=== PATIENT | female | born 1990 | race Caucasian/White ===

== ENCOUNTER 2017-02-18 04:18 | Emergency (ER) | payer OTHER ==
[~2017-02-18] VITALS: Ht 170.2 cm; Wt 68.2 kg
[2017-02-18 04:22] VITALS: BP 101/65; PULSE 129; RESP 25; O2SAT 97
--- NOTE | 2017-02-18 04:37 | ED.REPORT ---
HPI-Back Pain Under 40 Date of Service Feb 18, 2017 ED Provider: Nathan Osborn MD Patient is a 26 year old female with a history of anxiety, bipolar disorder and depression who presents to the ED complaining of severe anxiety. Associated symptoms include chronic upper back pain, feeling hot without a fever, nausea, vomiting, insomnia and decreased appetite. She denies incontinence, weakness, numbness or bowel dysfunction. Per the patient's mother's boyfriend, the patient has also been having suicidal ideations. The patient has been trying to take her medication but the patient's family doesn't think the medications have been working because she has been vomiting every day for the past few days. The patient was recently hospitalized at [facility] during the last month and thinks she is unable to live on her own because she cannot take care of herself. She has been clean for heroin for 18 months and states that her back pain began after she stopped using. Nursing Notes Stated Complaint: BACK PAIN/ANXIETY Chief Complaint: Back Pain or Injury Nursing Notes Reviewed: Yes Allergies: Coded Allergies: haloperidol (Verified Allergy, Severe, DISCONNESTA, 02/18/17) fentanyl (Verified Allergy, Unknown, 02/18/17) General Time Seen by MD: 04:37 Chief Complaint Back pain Hx Obtained From: Patient, Other family... Arrived By: Walk-in Sudden in Onset?: No Onset Occurred: More than a week ago... (6 months) Location: : Spinal thoracic area Severity: Current: Severe Severity: Maximum: Severe Recent Healthcare: Recent doctor visit, Recent hospitalization Similar Sx Previous: Yes Past Medical History Past Medical History anxiety chronic back pain bipolar disorder Smoking History Unknown if Ever Smoker Social History Alcohol Use: Denies alcohol use Drug Use: In recovery Other Social History: Good social support Ambulatory Status Independent Review of Systems Review of Systems Note: decreased appetite feeling hot Constitutional: Denies: Chills, Fever Respiratory: Denies: Non-productive cough, Shortness of breath GI: Reports: Nausea, Vomiting Female: Denies: Incontinence Musculoskeletal: Reports: Back pain Neurologic: Denies: Bladder dysfunction, Bowel dysfunction, Numbness, Weakness Complete sys rev & neg: except as marked. Skin: Denies Itching, Denies Rash Psychiatric: Reports: Anxiety, Insomnia, Suicidal ideation Physical Exam Initial Vital Signs Vital Signs (First) Date Time Temp Pulse Resp B/P Pulse Ox O2 Delivery O2 Flow Rate FiO2 7/11/17 04:22 36.8 129 25 101/65 97 Room Air Initial VS: Reviewed General/Constitutional: Awake, Alert Behavior: Positive: Tearful BACK: excoriated upper thoracic area Neurologic: Oriented X3, Speech NL, No motor deficits, No sensory deficits Respiratory / Chest: Atraumatic, No respiratory distress Head / Eyes: Atraumatic, Normocephalic, PERRL, EOMI Skin: Atraumatic, Color NL, No rash, Warm, Dry Abnormal Mood/Affect: Positive: Anxious Interpretation & Diagnostics Lab Results Interpretation Result Diagram: 02/18/17 0500 02/18/17 0500 Test 02/18/17 04:50 02/18/17 05:00 Urine Color Yellow (YELLOW) Urine Appearance Slightly cloudy Urine pH 7.0 (5.0-8.0) Urine Specific [place] 1.015 (1.003-1.035) Urine Protein Tracemg/dL (NEG,TRACE) Urine Glucose (UA) Negativemg/dL (NEGATIVE) Urine Ketones 15mg/dL (NEGATIVE) Urine Occult Blood Negative (NEGATIVE) Urine Nitrite Negative (NEGATIVE) Urine Bilirubin Negative (NEGATIVE) Urine Urobilinogen Normalmg/dL (NORMAL) Urine Leukocyte Esterase Negative (NEGATIVE) Urine RBC 0-2/hpf (0-2) Urine WBC 0-5/hpf (0-5) Urine Epithelial Cells Many/hpf (NONE-MOD) Urine Crystals None seen (NONE SEEN) Urine Bacteria Many/hpf (NONE-FEW) Urine Hyaline Casts None/lpf (NONE) Urine Granular Casts None seen (NONE SEEN) Urine Waxy Casts None seen (NONE SEEN) Urine Red Blood Cell Casts None seen (NONE SEEN) Urine White Blood Cell Casts None seen (NONE SEEN) Urine Mucus Present (None Seen) Urine Trichomonas None seen (NONE SEEN) Urine Yeast None (NONE SEEN) Urinalysis Comment None Urine Culture Reflexed Indicated White Blood Count 15.7th/mm3 (3.8-10.1) Red Blood Count 5.31mil/mm3 (3.90-5.20) Hemoglobin 13.2g/dL (12.0-15.6) Hematocrit 40.4% (35.0-46.0) Mean Corpuscular Volume 76.1fL (81-100) Mean Corpuscular Hemoglobin 24.9pg (27.0-35.0) Mean Corpuscular Hemoglobin Concent 32.7% (32.0-37.0) Red Cell Distribution Width 15.0% (12.3-15.4) Platelet Count 508bil/L (150-400) Neutrophils (%) (Auto) 83.9% (40-74) Lymphocytes (%) (Auto) 8.0% (14-46) Monocytes (%) (Auto) 7.5% (4-12) Eosinophils (%) (Auto) 0.1% (0-5) Basophils (%) (Auto) 0.2% (0-3) Erythrocyte Sedimentation Rate 4mm/hr (0-32) Sodium Level 136mEq/L (134-144) Potassium Level 3.9mEq/L (3.5-5.2) Chloride Level 97mEq/L (97-108) Carbon Dioxide Level 20mmol/L (18-29) Blood Urea Nitrogen 6mg/dL (6-20) Creatinine 0.66mg/dL (0.57-1.00) Estimat Glomerular Filtration Rate 156mL/min (>59) Glucose Level 98mg/dL (60-99) Calcium Level 10.4mg/dL (8.5-10.1) Magnesium Level 2.0mg/dL (1.6-2.6) Total Bilirubin 0.8mg/dL (0.0-1.2) Aspartate Amino Transf (AST/SGOT) 46U/L (0-50) Alanine Aminotransferase (ALT/SGPT) 23U/L (0-32) Alkaline Phosphatase 87U/L (25-150) Total Protein 8.3g/dL (6.4-8.4) Albumin 4.9g/dL (3.4-5.0) Lipase 30U/L (13-60) Thyroid Stimulating Hormone (TSH) 1.290uIU/mL (0.450-4.500) Hold Dangelo Top Tube Received (Received) [place] Level 0.3mEq/L (0.5-1.5) Alcohols < 10mg/dL (0-10) Re-Eval/Medical Decision Med Decision/Clinical Course 26-year-old female with history of heroin abuse, now clean for eighteen months, presents with chronic back pain and anxiety and depression with suicidal ideation. The back pain is mid thoracic, and is not evaluated for eight or ten months. Sedimentation rate is low. White count is moderately elevated. CT with contrast awaited. May require MRI, but she has no neurological symptoms distally. As regards her anxiety and her depression, she is on lithium with established bipolar history, and notably on Vistaril, and not benzodiazepines. She was given a single dose here, but it is apparent that her caregivers were attempting to avoid heavy chewing substances in her case, particularly with her history of abuse. She is seeking psychiatric admission, but will require medical clearance and control of her current symptoms before she would be suitable for a psychiatric admission. Transferred to Dr. Ojeda's morning for further evaluation and disposition as appropriate. Discharge & Departure Shift Change Sign-Out Patient Care Transferred: Yes Discussed Complaint(s): Yes Impression: Primary Impression: Anxiety Additional Impression: Back pain Back pain location: thoracic back pain Chronicity: chronic Back pain laterality: midline Qualified Code: M54.6 - Pain in thoracic spine All VS Reviewed: Yes Condition: Stable Care Transferred to: Dr. Ojeda Care Transferred at: 06:00 Scribe Attestation Portions of this note were transcribed by Jaqueline Salcedo. I, Dr. Osborn personally performed the history, physical exam and medical decision-making; I reviewed and confirmed the accuracy of the information in the transcribed note. Signed by: Tre Mock, 02/18/17 and 06 Nathan Osborn MD Feb 18, 2017 04:37 Madisyn Salcedo Feb 18, 2017 04:46
[2017-02-18] MEDS ORDERED: 0.9% Sodium Chloride 1,000 ML IV ONE ×2 (04:48→07:25)
[2017-02-18] MEDS ORDERED: Famotidine Inj 20 MG in IV Premix 1 EACH IV ONE (04:50)
[2017-02-18] MEDS ORDERED: Ondansetron 2 mg/mL 2 mL Inj IVPUSH ONE (04:50)
[2017-02-18 05:05] LABS: APPEARANCE,URINE SLIGHTLY CLOUDY (CLEAR,HAZY); COLOR,URINE YELLOW (YELLOW); OCCULT BLOOD,URINE NEGATIVE (NEGATIVE); UROBILINOGEN,URINE NORMAL (NORMAL)
[2017-02-18 05:17] LABS: BASOPHILS % (AUTO) 0.2 % (0-3); EOSINOPHILS % (AUTO) 0.1 % (0-5); MONOCYTES % (AUTO) 7.5 % (4-12); Mean Corpuscular Hemoglobin 24.9 pg (27.0-35.0); Mean Corpuscular Volume 76.1 fL (81-100); NEUTROPHILS % (AUTO) 83.9 % (40-74); Platelet Count 508 bil/L (150-400)
[2017-02-18] MEDS ORDERED: Ketamine 10 mg/mL 20 mL Inj IV ONE (06:20)
[2017-02-18 06:42] LABS: Lipase 30 U/L (13-60)
[2017-02-18] MEDS ORDERED: HYDR50CA3 PO (07:35)
[2017-02-18] MEDS ORDERED: QUET200T PO (07:35)
[2017-02-18] MEDS ORDERED: KETO10TA PO (07:35)
[2017-02-18] MEDS ORDERED: ONDA4TAB12 PO (07:35)
[2017-02-18] MEDS ORDERED: BUPR1FIL3 SL (07:35)
[2017-02-18] MEDS ORDERED: TRAZ-118 PO (07:35)
[2017-02-18] MEDS ORDERED: GABA800T2 PO (07:35)
[2017-02-18] MEDS ORDERED: LITH300T PO (07:35)
[2017-02-18] MEDS ORDERED: PANT40TA3 PO (07:35)
[2017-02-18 07:39] VITALS: BP 114/70; PULSE 88; RESP 14; O2SAT 100
[2017-02-18] MEDS ORDERED: Buprenorphine 2 mg SL Tablet SL ONE (07:40)
--- NOTE | 2017-02-18 09:10 | DRSVH ---
PROCEDURE: CT THORACIC SPINE WITH CONTRAST ([id number]) INDICATIONS: pain t spine in heroin abuser TECHNIQUE: After the administration of intravenous Isovue contrast, 3 mm thick sections acquired through the lev els of interest. Sagittal and coronal reformats were then constructed. For radiation dose reduction , the following was used: automated exposure control. COMPARISON: None. FINDINGS: Image quality: Excellent. Bones: No sign of discitis or osteomyelitis. A small degree of midthoracic degenerative disc height reduction and anterior osteophyte formation indicates presence of mild midthoracic degenerative disc disease. Soft tissues: No sign of paravertebral or epidural abscess. Note is made of a 1.4 x 1.1 x 1.2 cm com plex cyst left thyroid gland. IMPRESSION: 1. No sign of discitis or osteomyelitis. MR scanning allows a more accurate assessment for presence or absence of epidural abscess but no CT evidence of epidural abscess is currently found. Paraverte bral soft tissues also appear free of evidence of infection or underlying neoplasm. 2. Unexpected finding of 1.4 cm maximal dimension complex left thyroid cystic structure. This shoul d be further evaluated by ultrasound scanning given the complexity of the structure and the limited n ature of quality of visualization of thyroid masses/complex cysts by CT when compared to the much hig her resolution imaging by ultrasound. Dictated by: Low Brooks M.D. on 02/18/2017 at 9:04 Approved by: Low Brooks M.D. on 02/18/2017 at 9:08
== END 2017-02-18 11:10 | disposition left against medical advice (07) ==
LOC: SED 04:18
DX: M54.6 Pain in thoracic spine (principal); Z88.8 Allergy status to other drugs, medicaments and biological substances
CPT/HCPCS: 36415; 72129; 80053; 80178; 81000; 81025; 83690; 83735; 84443; 85025; 85651; 87086; 87088; 96361; 96374; 96375; 96376; 99285; G0480; J1885; J2060; J2405; J3490; J7030; Q0177; Q9967